=== PATIENT | female | born 1980 | race Two or more races ===

== ENCOUNTER 2018-10-17 17:29 | Emergency (ER) | payer BC, OTHER ==
[~2018-10-17] VITALS: Ht 165.1 cm; Wt 73.5 kg
[2018-10-17 17:40] VITALS: BP 136/81
== END 2018-10-17 23:00 | disposition home or self-care (01) ==
LOC: ER 17:29
DX: S83.8X2A Sprain of other specified parts of left knee, initial encounter (principal); Z88.1 Allergy status to other antibiotic agents; W18.30XA Fall on same level, unspecified, initial encounter; Y93.89 Activity, other specified; Y92.89 Other specified places as the place of occurrence of the external cause; Y99.8 Other external cause status
CPT/HCPCS: 73562; 73590